=== PATIENT | male | born 1995 | race Caucasian/White ===

== ENCOUNTER 2017-12-22 07:39 | Emergency (ER) | payer BC, OTHER ==
[~2017-12-22] VITALS: Ht 175.3 cm; Wt 88.0 kg
[~2017-12-22 07:39] MED LIST: ACET1LIQ PO; ALBUAER2 INH; EPP3/2 IM; ETAN50IN2 IM
[2017-12-22 07:44] VITALS: TEMP 36.9; Ht 175.3 cm; Wt 88.0 kg
[2017-12-22] MEDS ORDERED: LXP10 PO (07:54)
[2017-12-22] MEDS ORDERED: ADAL40KI INJ (07:54)
[2017-12-22] MEDS ORDERED: ONDANSETRON INJ 2 MG/ML 2 ML VIAL IV STA (07:58)
[2017-12-22] MEDS ORDERED: FENTANYL CITRATE INJ 50 MCG/1 ML 2 ML VIAL IV ONE (08:00)
[2017-12-22] MEDS ORDERED: OPTIRAY 320 IV PRN (08:15)
--- NOTE | 2017-12-22 09:04 | DIAGNOSTIC IMAGING REPORT ---
CT OF THE CHEST WITH IV CONTRAST CLINICAL HISTORY: Right-sided rib pain. Trauma. COMPARISON STUDY: Chest radiograph February 25, 2015. TECHNIQUE: Following IV administration of 93 mL of Optiray-320, helical axial images of the chest were obtained. Sagittal and coronal reconstructions were viewed as well as maximal intensity projections on an independent 3-D workstation. A dose lowering technique was utilized adhering to the principles of ALARA. FINDINGS: There is no evidence of traumatic injury to the thoracic aorta. Size of the heart is at the upper limits of normal. There is no pericardial effusion. No enlarged thoracic lymph nodes are present. There is no pneumothorax or pulmonary contusion. Dependent airspace opacities reflect atelectasis. No acute rib fracture is identified. There is a mild compression fracture involving the superior plate of T7 with mild vertebral body height loss. There is no retropulsion or extension into the posterior elements. No additional thoracic spine fractures are identified. IMPRESSION: 1. Mild compression fracture involving the superior endplate of T7 with mild loss of vertebral body height and no retropulsion. This fracture is likely acute to subacute. 2. No additional traumatic findings within the chest. Electronically signed by: Harry Alcala M.D. 12/22/2017 9:03 AM Dictated Date/Time: 12/22/2017 8:49 AM
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
[2017-12-22] MEDS ORDERED: MoRPHine SULFATE 10 MG/ML CARP/VIAL IV STA (09:43)
[2017-12-22] MEDS ORDERED: OXYC1TAB3 PO (09:46)
[2017-12-22 10:28] VITALS: BP 118/60; PULSE 58; O2SAT 99
[2017-12-22 10:57] LABS: ISTAT CREATININE 0.9 mg/dl (0.6-1.3); ISTAT IONIZED CALCIUM 1.24 mmol/l (1.12-1.32); ISTAT POTASSIUM 4.2 mEq/L (3.3-5.0)
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
== END 2017-12-22 10:32 | disposition home or self-care (01) ==
LOC: C.EDB 07:41 → C.EDA 10:32
DX: S22.060A Wedge compression fracture of T7-T8 vertebra, initial encounter for closed fracture (principal); S20.219A Contusion of unspecified front wall of thorax, initial encounter; S30.1XXA Contusion of abdominal wall, initial encounter; V48.5XXA Car driver injured in noncollision transport accident in traffic accident, initial encounter; F17.200 Nicotine dependence, unspecified, uncomplicated

== ENCOUNTER 2018-02-06 07:31 | Emergency (ER) | payer OTHER ==
[~2018-02-06] VITALS: Ht 175.3 cm; Wt 87.8 kg
[~2018-02-06 07:31] MED LIST changes: -ACET1LIQ PO; +ADAL40KI INJ; -ALBUAER2 INH; -ETAN50IN2 IM; +LXP10 PO; +OXYC1TAB3 PO
[2018-02-06 07:35] VITALS: BP 125/81; PULSE 78; TEMP 36.5; O2SAT 98; Ht 175.3 cm; Wt 87.8 kg
[2018-02-06 08:15] LABS: BASO % 0.2 %; BASO ABS # 0.01 K/uL (0-0.2); EOS % 4.4 %; EOS ABS # 0.27 K/uL (0-0.5); HEMATOCRIT 38.8 % (42-52); HEMOGLOBIN 12.8 g/dL (14.0-18.0); IG# 0.01 K/uL (0.00-0.02); LYMPH % 33.4 %; LYMPH ABS # 2.03 K/uL (1.2-3.4); MEAN CELL VOLUME 76.2 fL (80-100); MEAN CORPUSCULAR HEMOGLOBIN 25.1 pg (25-34); MEAN PLATELET VOLUME 10.1 fL (7.4-10.4); MONO % 7.1 %; MONO ABS # 0.43 K/uL (0.11-0.59); NEUT % 54.7 %; NEUT ABS # 3.32 K/uL (1.4-6.5); PLATELET COUNT 194 K/uL (130-400); RED CELL DISTRIBUTION WIDTH CV 22.2 % (11.5-14.5); RED CELL DISTRIBUTION WIDTH SD 62.2 fL (36.4-46.3); WHITE BLOOD COUNT 6.07 K/uL (4.8-10.8)
[2018-02-06 08:24] LABS: PTT PATIENT 32.2 SECONDS (21.0-31.0)
[2018-02-06] MEDS ORDERED: CYCL10TA7 PO (08:25)
[2018-02-06] MEDS ORDERED: PROAIR INH (08:25)
[2018-02-06] MEDS ORDERED: LORA0.5T12 PO (08:25)
[2018-02-06 08:34] LABS: ALBUMIN 3.9 gm/dl (3.4-5.0); CALCIUM 8.9 mg/dl (8.5-10.1); CREATININE 0.88 mg/dl (0.60-1.40); POTASSIUM 4.1 mmol/L (3.5-5.1)
[2018-02-06 08:37] LABS: TOTAL PROTEIN 7.8 gm/dl (6.4-8.2)
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
== END 2018-02-06 09:18 | disposition home or self-care (01) ==
LOC: C.EDB 07:34
DX: R04.0 Epistaxis (principal); D68.0 Von Willebrand disease; J45.909 Unspecified asthma, uncomplicated; Z72.0 Tobacco use; Z88.2 Allergy status to sulfonamides

== ENCOUNTER 2020-08-25 06:30 | Observation (INO) ==
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
--- NOTE | 2020-08-24 16:23 | History & Physical Report ---
Date of Service August 24, 2020 Assessment & Plan (1) Superior glenoid labrum lesion of left shoulder, subsequent encounter: MRI with arthrogram confirms a superior labral tear. He may also have a small inferior labral tear, although I am skeptical of this on the imaging and it does not make a lot of sense with his mechanism of injury. We discussed this at length. I think that the best surgical treatment option for him would be shoulder arthroscopy with debridement of the superior labral tear and biceps tenodesis. I would evaluate the rest of the labrum and perform any additional repair as necessary. We extensively discussed conservative treatment with therapy and injections versus definitive surgical intervention, and he would much prefer the latter at this point. I think this is reasonable. Risks, benefits, and alternatives of surgery were explained in detail. The surgical procedure, as well as postoperative recovery and rehabilitation, was also explained in detail. Risks include bleeding; infection; damage to surrounding structures such as nerves, blood vessels, and tendons that run in the area; persistent pain, numbness, weakness, or stiffness; hardware failure or failure of the repair; or need for further surgery. The patient understands all of this and wishes to proceed with surgery. Preoperative workup was completed today, and informed consent was obtained. Of note, he has psoriasis and is on every other week Humira dosing. According to recommendations, we would schedule his surgery 2 weeks after his last Humira dose, have him skip 1 dose, and resume Humira 2 weeks after surgery. He was supposed to take his Humira yesterday. I would recommend that he go ahead and do this, and we will schedule his surgery at least 2 weeks from now. He also mentions today that he has von Willebrand's disease, and must get factor VIII infusion pre-and postoperatively, coordinated with his credit resolution representative. This will make the scheduling the surgery a little more difficult. We will get the actual surgery date nail down once we coordinate all these things. History of Present Illness Chief Complaint: Left shoulder pain Primary Care Provider: Joe Lang DO Mr. Vila returns today for his left shoulder. Again, he is a 25-year old [id number] male with a left shoulder injury that occurred 1 month ago. He fell forward in his chicken coop, and grasp the fence with his left arm as he was falling. He sustained a significant traction injury to his left arm. He felt a pop and sharp pain as he fell. Since that injury, he has had persistent pain and crepitus in the left shoulder. The pain seems to be in the superior aspect of his shoulder, especially with abduction and forward flexion motions. He denies any pain in his shoulder prior to this incident 1 month ago. He has not had any treatment for this yet. When I first saw him last week, I sent him for an MRI with arthrogram. He returns today for the results of this. Of note, he has psoriasis and is on Humira for this. He takes this every other week. Allergies Allergy/AdvReac Type Severity Reaction Status Date / Time bee venom protein (honey bee) Allergy Intermediate SWELLING Verified 08/23/20 07:51 Sulfa (Sulfonamide Allergy Intermediate Hives Verified 08/23/20 07:51 Antibiotics) Home Medications Home Medications Medication Instructions Recorded Confirmed Type adalimumab [Humira Pen] 40 mg SUBCUT UD 08/23/20 08/23/20 History albuterol sulfate 2 inh INHALATION Q6H PRN 08/23/20 08/23/20 History diphenhydramine HCl [Benadryl] 25 mg PO QAM 08/23/20 08/23/20 History epinephrine [Epi E-Z Pen] 0.3 mg IM Q3H PRN 08/23/20 08/23/20 History escitalopram oxalate 20 mg PO QAM 08/23/20 08/23/20 History lorazepam 0.5 mg PO BID PRN 08/23/20 08/23/20 History Past Med/Surg History Medical History Anxiety Asthma USED RESCUE INHALER OVER 1 YEAR AGO LAST Chronic back pain LUMBAR SPINE History of blood transfusion "MULTIPLE TIMES" Psoriasis Psoriatic arthritis Von Willebrand disease Surgical History H/O foot surgery RT/LEFT FOOT (CORRECTION FOR FLAT FOOT/HARDWARE INTACT) H/O shoulder surgery RT History of tooth extraction Nausea and vomiting after administration of anesthetic agent [place] teeth removed Family History Other No significant family history Social History Smoking Status: Current every day smoker Smoking End Date: 8 CIG DAILY; Second Hand Exposure: Yes; Do You Dip or Chew Tobacco: No; Tobacco Cessation Education Requested by Patient: No Hx Alcohol Use: Yes Alcohol type: beer Hx Substance Use: Yes Last Used Substance Other:: LAST USED THIS AM (ADVISED BY NURSING) Preferred Language: Guyanese Data Sme Required: No Beliefs That Will Affect Care: None Current Living Situation: Significant Other Feels Safe at Home: Yes Safety Concerns: Feels Safe At This Time Assistive Devices: None Physical Exam Physical Exam: General: The patient appears well developed and well nourished. Awake, alert, and oriented x 3. Appropriate mood and affect. Normal gait and station. Normal coordination and balance. Skin: The skin over the left shoulder shows no lesion or erythema. Inspection/Palpation: Visual inspection reveals no gross deformity of the shoulder. There is no palpable focal swelling. There is no significant focal tenderness to palpation along the biceps tendon sheath. Range of Motion: There is full symmetric range of motion of the shoulder. Stability: There is no gross ligamentous laxity. Strength: Rotator cuff strength is well maintained. Markedly positive Rogers's test. Negative Yergason's test. Sensation: The patient reports no numbness in the hand. Vascular: Hand is warm and well perfused. No diffuse edema. Results & Data ([facility]) Diagnostic Findings New left shoulder MRI with arthrogram was reviewed. It confirms a superior labral tear. It looks like there may also be a posterior inferior labral tear as well, but I am little skeptical of this. Rotator cuff looks intact. He has a type I-II acromion.
[~2020-08-25 06:30] MED LIST changes: -ADAL40KI INJ; +CEFAZOLIN 2000MG 2,000 MG/15 ML SYR IV SCH; -EPP3/2 IM; +LR 15ML/HR IV SCH; -LXP10 PO; -OXYC1TAB3 PO
[2020-08-25] MEDS ORDERED: BUPIVACAINE 0.5 % 5 MG/1 ML PF 10ML VIAL ONE (06:57)
[2020-08-25] MEDS ORDERED: [UNRECOGNIZED DRUG - MIXTURE] IV STA (07:05)
[2020-08-25 07:09] LABS: Partial Thromboplastin Ratio 1.3; Partial Thromboplastin Time 36.1 Seconds (21.0-31.0); Prothrombin Time 10.7 Seconds (9.0-12.0)
[2020-08-25] MEDS ORDERED: PROPOFOL IV EMULSION 10 MG/ML 20 ML VIAL IV ONE ×2 (07:31→11:07)
[2020-08-25] MEDS ORDERED: ROCURONIUM BROMIDE 10 MG/ML 5 ML VIAL IV ONE (07:31)
[2020-08-25] MEDS ORDERED: MIDAZOLAM HCL 1 MG/ML 2ML VIAL ONE (07:31)
[2020-08-25] MEDS ORDERED: ONDANSETRON INJ 2 MG/ML 2 ML VIAL ONE (07:31)
[2020-08-25] MEDS ORDERED: LIDOCAINE HCL 2% 2 ML VIAL/AMP(20MG/ML) INFIL ONE (07:31)
[2020-08-25] MEDS ORDERED: fentaNYL citrate 100 MCG/2 ML VIAL ONE (07:32)
[2020-08-25] MEDS ORDERED: ONDANSETRON INJ 2 MG/ML 2 ML VIAL IV PRN ×2 (08:13→15:51)
[2020-08-25] MEDS ORDERED: MEPERIDINE HCL 25 MG/ML CARP/VIAL IV PRN (08:13)
[2020-08-25] MEDS ORDERED: LABETALOL HCL IV 5 MG/ML 20ML IV PRN (08:13)
[2020-08-25] MEDS ORDERED: HYDROmorphone INJ 1 MG/ML SYRINGE IV PRN (08:13)
[2020-08-25] MEDS ORDERED: ATROPINE SULFATE 0.1 MG/ML 10ML SYR IV PRN (08:13)
[2020-08-25] MEDS ORDERED: PHENYLEPHRINE 100MCG/ML 5ML SYR IV PRN (08:13)
[2020-08-25] MEDS ORDERED: fentaNYL citrate 100 MCG/2 ML VIAL IV PRN (08:13)
[2020-08-25] MEDS ORDERED: ePHEDrine sulfate 50 MG/ML AMP IV PRN (08:13)
--- NOTE | 2020-08-25 08:16 | History & Physical Bridge Note ---
Date of Service August 25, 2020 History & Physical Bridge Note I have examined the patient, reviewed the History & Physical and in the interval since the performance of the History & Physical I have noted the following changes of clinical significance: no changes noted
[2020-08-25] MEDS ORDERED: SCOPOLAMINE 1.5 MG TDSY TD ONE ×3 (08:20→08:40)
[2020-08-25] MEDS ORDERED: EPINEPHrine HCL INJ 1 MG/ML 30ML ONE ×2 (08:37→08:39)
[2020-08-25] MEDS ORDERED: DEXAMETHASONE SOD INJ 4 MG/ML VIAL ONE (09:08)
[2020-08-25] MEDS ORDERED: GLYCOPYRROLATE 0.2 MG/ML VIAL ONE (11:06)
[2020-08-25] MEDS ORDERED: NEOSTIGMINE METHYLSULFATE 5 MG/5 ML SYR ONE (11:06)
--- NOTE | 2020-08-25 11:16 | Post Operative Brief Note ---
Immediate Post Op Note v1 Date of Surgery August 25, 2020 Pre & Post Diagnosis Operation Date: 08/25/20 08:15 Pre-Op Diagnosis: Left shoulder superior and posterior labral tears Post-Op Diagnosis: Left shoulder superior, posterior, and anterior-inferior labral tears I identified the patient and participated in the time-out.: Yes Procedure Operation Date: 08/25/20 08:15 Actual Procedures Left Shoulder Arthroscopy with Debridement of Superior Labral Tear, Bicep Tenodesis, Posterior and Anterior-Inferior Labral Repairs - Raymundo Cali M.D. Surgeon Raymundo Cali Quality Control Analyst Bo Ramirez PA-C Estimated Blood Loss 5 Findings Consistent with Post-Op Diagnosis
--- NOTE | 2020-08-25 11:18 | Operative Report ---
Post Operative Report Pre & Post Diagnosis Operation Date: 08/25/20 08:15 Pre-Op Diagnosis: Left shoulder superior and posterior labral tears Post-Op Diagnosis: Left shoulder superior, posterior, and anterior-inferior labral tears I identified the patient and participated in the time-out.: Yes Procedure Operation Date: 08/25/20 08:15 Actual Procedures Left shoulder arthroscopy with extensive debridement of degenerative superior labral tear and biceps tenotomy (35444) Arthroscopic biceps tenodesis (85946) Arthroscopic repair of posterior and anteriorinferior labral tears (79710) - Raymundo Cali M.D. Surgeon Raymundo Cali Director Loss Prevention Bo Ramirez PA-C Estimated Blood Loss 5 Findings Consistent with Post-Op Diagnosis Specimens None Drains None Anesthesia Type General Regional Complications none Disposition Disposition: Recovery Room Indications Mr. Vila is a 25-year-old male who injured his left shoulder when he fell and grabbed a fence as he was falling and had a traction injury to his left shoulder about a month ago. History, clinical exam, and imaging were consistent with the above diagnosis. Risks, benefits, and alternatives of surgery were explained in detail. The patient understood all this and wished to proceed. Description of Procedure Patient was identified in the preoperative holding area. Operative extremity was marked. Regional blockade was given by the Anesthesia Staff. Patient was then brought back to the operating room, and general anesthesia was induced without complication. Appropriate weight-based dose of Ancef was infused intravenously for antibiotic prophylaxis. Patient was then placed up in the beach chair position. Left arm was then prepped and draped in a standard sterile fashion using Chlorhexidine prep. Posterior viewing portal was created with a #11 blade. Arthroscopic camera was introduced into the shoulder joint. Anterior working portal was then created with a #11 blade after localizing with a spinal needle. Diagnostic arthroscopy was then performed. Superior labrum showed fraying along the free edge. When probed, the superior labrum grossly from the superior glenoid, consistent with a type II SLAP tear. There was some focal grade III chondromalacia in the area of this labral tear as well. The labral tearing extended through the zone of the sub-labral foramen, and there appeared to be some separation of the labrum in the anterior inferior aspect of the shoulder around the 4:30 position. There is also obvious tearing of the posterior labrum, but this was better visualized after switching the arthroscopic camera to the anterior portal. Articular cartilage in the majority of the glenoid and humeral head was intact without significant chondromalacia, other than in the area of the superior and posterior labral tears. There were no loose bodies in the axillary pouch. I then inspected the rotator cuff tendon. No full- thickness rotator cuff tears requiring repair were visualized. Posterior humeral head was visualized, and no significant Hill-Sachs deformity was seen. I then inspected the biceps tendon as it exited out of the shoulder. There was significant synovitis and tendonitis of the biceps tendon in this area. I therefore decided to proceed with the biceps tenotomy and tenodesis. I tagged the biceps tendon with a 0 PDS suture. I then amputated the biceps tendon off of the superior labrum. Degenerative superior labral tear was then debrided with an arthroscopic shaver. I then removed the camera from the intraarticular space and placed it in the subacromial space. Lateral working portal was created, and a subacromial bursectomy was then performed with shaver and radiofrequency probe. I defined the anterior and lateral borders of the acromion; there was no significant anterior downsloping of the acromion, and therefore a subacromial decompression was not required. At this point I proceeded with the biceps tenodesis. I continued with the bursectomy anteriorly to the area overlying the bicipital groove. Bicipital groove was palpated, and the biceps tendon was unroofed with the radiofrequency probe. There was significant synovitis and tendonitis of the biceps tendon in this area. I then subluxated the biceps tendon out of the bicipital groove and placed a guide wire in the center of the bicipital groove. I then used an 8 mm reamer over the guidewire to create the biceps tenodesis hole. I then tensioned the biceps tendon appropriately, placed the tendon down into the depth of the tenodesis hole, and held it there with a guidewire. I then secured the tendon with an 7 x 25 mm Biosure tenodesis screw over the guidewire to complete the biceps tenodesis. I then amputated the proximal portion of the tendon proximal to the tenodesis screw. I then proceeded with the fixation of the posterior labral tear. Arthroscopic camera was placed in the anterior portal, and the posterior labrum visualized. There is separation of the posterior labrum away from the posterior glenoid, with extension of this posterior labral tear down into the posteriorinferior portion of the labrum. There was again a small focal area of grade III chondromalacia directly in the area of this labral tear. Posteriorlateral portal for percutaneous placement of the labral anchors was created with #11 blade after localizing with a spinal needle. Arthroscopic rasp/liberator was introduced into the shoulder joint and the posterior aspect of the glenoid was roughened to incite healing response. A curved [employer] Nephew 1.8 mm Q-Fix anchor was then selected for labral repair. I positioned the curved drill guide at about the 8:30 position on the posterior glenoid at the superior extent of the labral tear. Drill hole was made, and then the anchor was inserted into this drill hole and deployed. One limb of the suture was then passed around the labrum using a suture passer, and then tied down. This process was repeated with 1 more Q-Fix anchor down to about the 10:00 position to complete the repair of the posterior and posteriorinferior labrum. I then switched the camera back into the posterior portal and proceeded with anteriorinferior labral repair. A small anterior-inferior portal was created with #11 blade after localizing with a spinal needle for percutaneous placement of the anchor. Arthroscopic rasp/liberator was introduced into the shoulder joint and the anterior-inferior aspect of the glenoid was roughened to incite healing response. A curved Elder [employer] Nephew 1.8 mm Q-Fix anchor was again selected for labral repair. I positioned the curved drill guide at about the 5:00 position on the anterior-inferior glenoid at the inferior extent of the labral tear. Drill hole was made, and then the anchor was inserted into this drill hole and deployed. One limb of the suture was then passed around the labrum using a suture passer, and then tied down. All arthroscopic equipment was removed and excess fluid was drained. Arthroscopic portals were then closed with 4-0 Prolene. Sterile dressings were then applied with Xeroform, sterile gauze, and sterile ABD pads, and foam tape. The arm was placed in a sling. Drapes were removed, the patient was awakened from general anesthesia, transferred over to the stretcher, and taken to the Post Anesthesia Care Unit in stable condition. There were no immediate complications from the procedure. I was present and scrubbed for the entire procedure. Due to the complex nature of the procedure, the entire surgery was performed with the operational assistance of Bo Ramirez PA-C. The music library assistant, under direct supervision, was involved in the performance of all aspects of the surgical procedure including patient positioning, tissue retraction, hemostasis, wound closure, and dressing application. I attest to the content of the Intraoperative Record and any orders documented therein. Any exceptions are noted below.
--- NOTE | 2020-08-25 12:01 | Anesthesiology Progress Note ---
Date of Service August 25, 2020 Anesthesia Post Procedure Vital Signs Vital Signs: Temp Pulse Pulse Resp BP Pulse Ox 08/25/20 11:50 81 24 119/72 95 08/25/20 11:40 97 H 18 113/71 99 08/25/20 11:33 36.6 C 104 H 18 110/66 98 08/25/20 08:17 59 L 18 136/80 99 08/25/20 06:49 37.2 C 74 18 128/84 96 Pain Intensity Left Shoulder: Pain Intensity: 4 Transfer of Care Handoff Completed per policy Notes Mental Status: alert / awake / arousable Patient Amnestic to Procedure: Yes Nausea / Vomiting: adequately controlled Pain: adequately controlled Airway Patency, RR, SpO2: stable & adequate BP & HR: stable & adequate Hydration State: stable & adequate Anesthetic Complications: no major complications apparent and Pt Satisfied with anesthetic care
[2020-08-25] MEDS ORDERED: LORazepam 0.5 MG TAB PO STA (15:05)
[2020-08-25] MEDS ORDERED: FACTOR 8/HUMATE-P/ADVATE ONE (15:15)
[2020-08-25] MEDS ORDERED: ACETAMINOPHEN 325 MG TAB ONE (15:24)
[2020-08-25] MEDS ORDERED: ACETAMINOPHEN 325 MG TAB PO STA (15:27)
[2020-08-25] MEDS ORDERED: LORazepam 0.5 MG TAB PO PRN (15:51)
[2020-08-25] MEDS ORDERED: ACETAMINOPHEN 325 MG TAB PO PRN (15:51)
[2020-08-25] MEDS ORDERED: ALBUTEROL HFA 8 GM INHALER INH PRN (15:51)
[2020-08-25] MEDS ORDERED: CHECK SCOPOLAMINE PATCH PLACEMENT SCH (16:00)
--- NOTE | 2020-08-25 17:07 | History & Physical Report ---
Date of Service August 25, 2020 Assessment & Plan (1) Superior glenoid labrum lesion of left shoulder, subsequent encounter: s/p left shoulder arthroscopy with Dr. Cali plan to discharge tomorrow morning (2) Von Willebrand's disease: plan for Humate - P this evening and tomorrow morning Dr. Flores will see tomorrow morning likely home in the morning after check labs and give Humate - P Admission and Anticipated Discharge Date Admission Date: August 25, 2020 History of Present Illness Chief Complaint: I had shoulder surgery Primary Care Provider: Joe Lang, 25 yo male with history of von Willebrand's disease, psoriasis and arthritis is going for observation after having shoulder arthroscopy today. He needs to stay for Humate-P infusion tonight and tomorrow morning. He c/o anxiety and a headache, he is requesting Ativan and Tylenol, he does not want to stay. Discussed with Dr. Flores, he needs to stay, get his factor 8 and he can go home tomorrow morning. Patient agreed to stay. Allergies Allergy/AdvReac Type Severity Reaction Status Date / Time bee venom protein (honey bee) Allergy Intermediate SWELLING Verified 08/25/20 0 6:54 Sulfa (Sulfonamide Allergy Intermediate Hives Verified 08/25/20 06:54 Antibiotics) Home Medications Home Medications Medication Instructions Recorded Confirmed Type Humira Pen 40 mg SUBCUT UD 08/23/20 08/25/20 History albuterol sulfate 2 inh INHALATION Q6H PRN 08/23/20 08/25/20 History diphenhydramine HCl [Benadryl] 25 mg PO QAM 08/23/20 08/25/20 History epinephrine 0.3 mg IM Q3H PRN 08/23/20 08/25/20 History escitalopram oxalate 20 mg PO QAM 08/23/20 08/25/20 History lorazepam 0.5 mg PO BID PRN 08/23/20 08/25/20 History Past Med/Surg History Medical History Anxiety Asthma USED RESCUE INHALER OVER 1 YEAR AGO LAST Chronic back pain LUMBAR SPINE History of blood transfusion "MULTIPLE TIMES" Psoriasis Psoriatic arthritis Von Willebrand disease Surgical History H/O foot surgery RT/LEFT FOOT (CORRECTION FOR FLAT FOOT/HARDWARE INTACT) H/O shoulder surgery RT History of tooth extraction Nausea and vomiting after administration of anesthetic agent [place] teeth removed Family History Other No significant family history Social History Smoking Status: Current every day smoker Smoking End Date: 8 CIG DAILY; Second Hand Exposure: Yes; Do You Dip or Chew Tobacco: No; Tobacco Cessation Education Requested by Patient: No Hx Alcohol Use: Yes Alcohol type: beer Hx Substance Use: Yes Last Used Substance Other:: LAST USED THIS AM (ADVISED BY NURSING) Preferred Language: Azeri Radio Message Router Required: No Beliefs That Will Affect Care: None Current Living Situation: Significant Other Feels Safe at Home: Yes Safety Concerns: Feels Safe At This Time Assistive Devices: None Review of Systems Review of Systems: All systems reviewed & are unremarkable except as noted in Subjective Musculoskeletal: + joint pain (shoulder, mild) Neurologic: + headache(s) Psychiatric: + anxiety Physical Exam Constitutional: well developed and well nourished; no acute distress Eyes: PERRL, conjunctivae normal, anicteric sclerae ENMT: external ear and nose normal, oropharynx normal Neck: trachea midline, no thyromegaly Respiratory: normal respiratory effort, lungs clear to auscultation Cardiovascular: RRR, no murmur, no edema Gastrointestinal (Abdomen): normal bowel sounds, soft, nontender, no hepatosplenomegaly Musculoskeletal: no cyanosis or clubbing, extremities motor strength 5/5 Extremities: + extremities abnormal to inspection (left arm in immobilizer sling) Skin: no rashes, warm and dry Neurologic: patellar DTR's 2+ bilat, sensation intact and PERRL, EOMI, accommodation nl, no face palsy, no dysarthria Psychiatric: A+Ox3, euthymic affect Lymphatic: no cervical or axillary lymphadenopathy Results & Data Results & Data ([facility]) Vital Signs (Past 12 Hours) Vital Signs Temp Pulse Pulse Resp BP Pulse Ox 08/25/20 15:50 36.8 C 72 16 129/67 95 08/25/20 14:16 36.6 C 78 18 125/85 98 08/25/20 12:46 36.6 C 80 18 128/83 98 08/25/20 12:16 36.6 C 85 18 130/69 95 08/25/20 12:10 36.5 C 82 22 124/73 96 08/25/20 12:00 89 17 121/75 95 08/25/20 11:50 81 24 119/72 95 08/25/20 11:40 97 H 18 113/71 99 08/25/20 11:33 36.6 C 104 H 18 110/66 98 08/25/20 08:17 59 L 18 136/80 99 08/25/20 06:49 37.2 C 74 18 128/84 96 Laboratory Results Laboratory Results - last 24 hr 08/25/20 08/25/20 06:44 06:44 PT 10.7 INR 1.0 APTT 36.1 H PTT Ratio 1.3 Factor VIII Activity Pending Medications Administered Current Inpatient Medications Acetaminophen (Acetaminophen 325 Mg Tab) 650 mg PO Q4H PRN PRN Reason: pain/fever Stop: 09/24/20 15:50 Albuterol (Albuterol Hfa 8 Gm Inhaler) 2 puffs INH Q6H PRN PRN Reason: SHORT OF BREATH Stop: 09/24/20 15:50 Diphenhydramine HCl (Diphenhydramine Hcl 25 Mg Cap) 25 mg PO QAM ESTELA Stop: 09/25/20 08:59 Escitalopram Oxalate (Escitalopram Oxalate 20 Mg Tab) 20 mg PO QAM ESTELA Stop: 09/25/20 08:59 Lorazepam (Lorazepam 0.5 Mg Tab) 0.5 mg PO BID PRN PRN Reason: Anxiety Stop: 09/24/20 15:50 Ondansetron HCl (Ondansetron Inj 2 Mg/Ml 2 Ml Vial) 4 mg IV Q6H PRN PRN Reason: Nausea Stop: 09/24/20 15:50 Last Admin: 08/25/20 18:03 Dose: 4 mg Documented by: Code Status & VTE Plan VTE Prophylaxis Plan VTE Prophylaxis will be ordered: No PG Care Time/CCT Total # of Minutes Spent Total Time Spent with Patient: Total time spent is greater than 50% in coordination of care (as documented) at patient's floor/unit and/or counseling patient: Coding Level of Care Code 80165 OBS Care - Level 2 Diagnoses Superior glenoid labrum lesion of left shoulder, subsequent encounter S43.432D Von Willebrand's disease D68.0
[2020-08-25] MEDS ORDERED: [UNRECOGNIZED DRUG - MIXTURE] IV ONE (20:00)
[2020-08-26] MEDS ORDERED: MoRPHine SULFATE 4 MG/ML 1 ML CARP\\VIAL IV STA (04:11)
[2020-08-26 06:05] LABS: Hematocrit (blood only) 40.4 % (42-52); Hemoglobin 13.5 g/dL (14.0-18.0); Mean Corpuscular Hemoglobin 29.8 pg (25-34); Mean Corpuscular Hgb Conc 33.4 g/dL (32-36); Mean Corpuscular Volume 89.2 fL (80-100); Platelet Count 207 K/uL (130-400); RDW Coefficient of Variation 13.7 % (11.5-14.5); RDW Standard Deviation 45.1 fL (36.4-46.3); Red Blood Count 4.53 M/uL (4.7-6.1); White Blood Count 12.97 K/uL (4.8-10.8)
[2020-08-26 06:24] LABS: Partial Thromboplastin Ratio 1.1; Partial Thromboplastin Time 30.2 Seconds (21.0-31.0); Prothrombin Time 10.9 Seconds (9.0-12.0)
[2020-08-26 07:29] VITALS: BP 118/75; PULSE 52; TEMP 99; O2SAT 97
[2020-08-26] MEDS ORDERED: OXYCODONE HCL IR 5 MG TAB (IMMEDIATE RELEASE) PO ONE (07:30)
[2020-08-26] MEDS ORDERED: FACTOR 8/HUMATE-P/ADVATE ONE (08:00)
[2020-08-26] MEDS ORDERED: [UNRECOGNIZED DRUG - MIXTURE] IV SCH (08:00)
--- NOTE | 2020-08-26 08:58 | Anesthesiology Progress Note ---
Date of Service August 26, 2020 Anesthesia Post Procedure Vital Signs Vital Signs: Temp Pulse Pulse Resp BP Pulse Ox 08/26/20 07:26 37.2 C 52 L 14 118/75 97 08/26/20 03:47 37.1 C 71 20 115/71 96 08/25/20 23:38 37.1 C 55 L 20 114/67 96 08/25/20 19:47 37.1 C 63 18 112/69 95 08/25/20 17:40 36.7 C 78 16 117/76 96 08/25/20 16:50 36.8 C 97 H 17 115/74 95 08/25/20 15:50 36.8 C 72 16 129/67 95 08/25/20 14:16 36.6 C 78 18 125/85 98 08/25/20 12:46 36.6 C 80 18 128/83 98 08/25/20 12:16 36.6 C 85 18 130/69 95 08/25/20 12:10 36.5 C 82 22 124/73 96 08/25/20 12:00 89 17 121/75 95 08/25/20 11:50 81 24 119/72 95 08/25/20 11:40 97 H 18 113/71 99 08/25/20 11:33 36.6 C 104 H 18 110/66 98 Notes Mental Status: alert / awake / arousable Patient Amnestic to Procedure: Yes Nausea / Vomiting: adequately controlled Pain: adequately controlled Airway Patency, RR, SpO2: stable & adequate BP & HR: stable & adequate Hydration State: stable & adequate Anesthetic Complications: no major complications apparent and Pt Satisfied with anesthetic care
[2020-08-26] MEDS ORDERED: ESCITALOPRAM OXALATE 20 MG TAB PO SCH (09:00)
--- NOTE | 2020-08-26 12:35 | Consultation Report ---
DATE OF CONSULTATION: 08/26/2020 HEMATOLOGY CONSULTATION REASON FOR CONSULTATION: Status post arthroscopic left shoulder surgery in a pleasant 25-year-old gentleman with von Willebrand's disease, type 2B. HISTORY OF PRESENT ILLNESS: Andrew is a pleasant 25-year-old gentleman well known to [facility], currently under my care with the diagnosis of type 2B von Willebrand's disease. The patient was admitted to the hospitalist service at my request to monitor hemostasis in the setting of arthroscopic left shoulder surgery. As instructed, this gentleman came in yesterday for elective surgery. He was administered Humate-P 30 units per kilogram one hour prior to procedure. The patient did well and is recovering on the 3rd floor at present. He received an additional dose of Humate-P last night 20 units per kilogram intravenously. He is due to receive his third and final dose this morning at 8:00 a.m. I visited Andrew at bedside. Other than expected postoperative pain, there was no evidence of external bleeding. His hemoglobin is 13 plus grams per deciliter. The patient is requesting to go home as soon as he receives Humate-P. PAST MEDICAL HISTORY: Again significant for anxiety, asthma, type 2B von Willebrand's disease, history of blood transfusions, psoriasis and psoriatic arthritis. PAST SURGICAL HISTORY: Includes wisdom teeth removal, history of right shoulder surgery, history of left foot surgery. MEDICATIONS: Prior to admission include lorazepam 0.5 mg p.o. b.i.d. p.r.n., escitalopram 20 mg p.o. daily, Benadryl 25 mg p.o. daily, albuterol sulfate 2 inhalations q.4 hours p.r.n., Humira pen 40 mg subQ as directed. ALLERGIES: BEE VENOM AND SULFA DRUGS. SOCIAL HISTORY: The patient is an 8-cigarette per day smoker. He also drinks beer in social occasions. He is single but lives with his significant other. FAMILY HISTORY: His mother also suffers from von Willebrand's disease. REVIEW OF SYSTEMS: All systems are negative, status post arthroscopic left shoulder surgery. PHYSICAL EXAMINATION: GENERAL: A very pleasant 25-year-old, awake, alert and appropriate, in no acute distress. VITAL SIGNS: Temperature 37.2, pulse 52, respiratory rate 14, blood pressure 118/75. SKIN: Without rash or lesion. Turgor is good. HEENT: Atraumatic, normocephalic. Eyes: PERRLA. Nares patent without rhinorrhea or discharge. Throat is clear. Tongue midline. NECK: Supple. HEART: Regular rate and rhythm. LUNGS: Clear to auscultation. ABDOMEN: Soft, nontender, nondistended. EXTREMITIES: Left upper extremity in immobilizer. Otherwise, no clubbing, cyanosis or edema of the lower extremities. NEUROLOGICAL: Grossly intact. LABORATORY DATA: WBC count 12,970, hemoglobin 13.5, platelet count 207,000. PT 10.9 seconds, PTT 30.2 seconds. IMPRESSION: 1. Postoperative day #1 arthroscopic left shoulder surgery to repair a torn rotator cuff. 2. Von Willebrand's disease, type 2. 3. Anxiety/depression. PLAN: Andrew is a very pleasant 25-year-old gentleman well known to [facility], currently under my care with a type 2B von Willebrand's disease. I saw Andrew in the office on 08/16/2020 in preparation for his upcoming surgery. As prescribed, he received Humate-P 1 hour before and within 8 hours postoperatively. He will receive yet a third dose this morning. He is now 24 hours beyond surgery and I think the risk of bleeding is quite low and feel very comfortable sending him home after his a.m. Humate-P. I have asked the hospitalist to order CBC for Saturday. I cautioned Andrew to be alert for acute swelling around the operative site and warmth to palpation, which may indicate hematoma formation. I am men's custom hair piece consultant over the weekend and advised him to certainly call me or proceed directly to the Emergency Room should any problems arise. Outpatient followup has been established. Thank you very much for allowing me to participate in his care. If you have any questions or concerns, feel free to contact me at any time.
--- NOTE | 2020-08-29 21:51 | Discharge Summary ---
Date of Service August 26, 2020 Admission HPI Per Admitting Provider 25 yo male with history of von Willebrand's disease, psoriasis and arthritis is going for observation after having shoulder arthroscopy today. He needs to stay for Humate-P infusion tonight and tomorrow morning. He c/o anxiety and a headache, he is requesting Ativan and Tylenol, he does not want to stay. Discussed with Dr. Flores, he needs to stay, get his factor 8 and he can go home tomorrow morning. Patient agreed to stay. Principal Diagnosis von Willebrand's disease Discharge Exam Constitutional well developed and well nourished; no acute distress Eyes PERRL, conjunctivae normal, anicteric sclerae ENMT external ear and nose normal, oropharynx normal Neck trachea midline, no thyromegaly Respiratory normal respiratory effort, lungs clear to auscultation Cardiovascular RRR, no murmur, no edema Gastrointestinal (Abdomen) normal bowel sounds, soft, nontender, no hepatosplenomegaly Musculoskeletal no cyanosis or clubbing, extremities motor strength 5/5 Extremities: + extremities abnormal to inspection (left arm in immobilizer sling) Skin no rashes, warm and dry Neurologic patellar DTR's 2+ bilat, sensation intact and PERRL, EOMI, accommodation nl, no face palsy, no dysarthria Psychiatric A+Ox3, euthymic affect Lymphatic no cervical or axillary lymphadenopathy Discharge Data Allergies Allergy/AdvReac Type Severity Reaction Status Date / Time bee venom protein (honey bee) Allergy Intermediate SWELLING Verified 08/25/20 06:54 Sulfa (Sulfonamide Allergy Intermediate Hives Verified 08/25/20 06:54 Antibiotics) Consultations 08/25/20 15:51 Consult Hematology Routine Procedures Performed Operation Date: 08/25/20 08:15 Actual Procedures p Left Shoulder Arthroscopy Debridement of Superior Labral Tear, Bicep Tenodesis, Posterior Labral Repair, Anterior/Interior Labral Repair(Left) - Raymundo Cali M.D. Ordered Studies 08/25/20 05:00 US - OR guided needle placemen Routine Hospital Course (1) Superior glenoid labrum lesion of left shoulder, subsequent encounter: s/p left shoulder arthroscopy with Dr. Cali discharge to home post op instructions for bandaging, activity level provided by orthopedics (2) Von Willebrand's disease: treated with Humate - P the morning prior to surgery, then in the evening and now this morning no signs of bleeding Dr. Flores consulted, appreciate recommendations will check a CBC on 08/29, he can follow up with Dr. Flores Total Time Total Time Spent Total Time Spent (In Minutes): 20 Total Time Includes: Examination of the Patient, Discharge Planning, Medication Reconciliation and Communication With Other Providers Discharge Plan Discharge Items Patient Disposition: Home - Self-Care Reason For Visit: Left Shoulder, Superior Labral Tear, Possible Post Discharge Diagnosis: Left shoulder superior, posterior, and anterior-inferior labral tears Condition on Discharge: Good Goals: get a CBC on Wednesday 08/29 Activity: Per Instructions section Non-emergency contact: Primary Care Provider and Surgeon Call non-emergency contact if: your pain is not controlled, your temperature is above 101.5, your wound has increased redness and your wound has increased drainage Follow-up/Referrals: Joe Lang, [Primary Care Provider] - Raymundo Cali M.D. [Physician] - Diet: Regular Addtl Attending Provider Instructions: Things to Watch Out For -Nausea and sometimes vomiting is common side effect of anesthesia. Go easy with eating for the first day after your surgery. Drink non-carbonated fluids like Gatorade or water. Eat bland foods such as crackers. If these things go down easily, you may progress to more normal foods. -Go to the Emergency Room if you have sudden onset of chest pain, shortness of breath, or uncontrollable pain. -Call the clinic immediately if you have a sudden increase in the amount of wound drainage or the drainage becomes thick, yellow or green, or foul-smelling. -For routine questions, call the clinic at [phone] during regular business hours (8am-5pm). For urgent issues after regular business hours, you may call the clinic to be connected to the on-call physician. Dressings -Keep your dressings clean, dry, and in place for 4 days. After 4 days, you may remove the dressing and cover the incisions with Band-Aids. Be sure to wash your hands thoroughly before touching your incisions. Apply new Band-Aids daily thereafter. -You may begin showering after your first dressing change (4 days after surgery). You may let the water run BRIEFLY over the incisions, but do not soak the incisions in the bathtub or pool for 2 weeks. You may also gently clean the incisions with mild soap and water; pat the incisions dry after cleaning-do not rub the incisions. -You may use an antibiotic ointment (Bacitracin, Polysporin) if desired, but this is not necessary. Shoulder Exercises -Keep your operative shoulder in the sling/abduction pillow at all times, except as detailed below. -You should come out of the sling 4-5 times a day for passive pendulum exercises: lean over and swing your arm in a circular pattern. You may also do active-assisted forward flexion exercises: use your opposite hand to lift your operative arm forward to 90 degrees. -Do not forcefully flex your elbow (curl motion) or supinate your forearm (rotating palm up) against resistance. Do not lift any objects with your operative arm. -Avoid the "apprehension position", with the shoulder abducted above shoulder level and externally rotated (in a "touchdown" motion). Pain Medicines -You have been prescribed an anti-inflammatory (Motrin/ibuprofen) and a non- narcotic pain medicine (Tylenol/acetaminophen). These are your primary pain medications. Take them each every 6 hours as instructed. It is recommended that you stagger these medicines every 3 hours (i.e. take ibuprofen at 8:00 am, then acetaminophen at 11:00 am, then ibuprofen at 2:00 pm, etc) -DO NOT take any additional anti-inflammatories (Advil, Aleve/naproxen, Mobic/meloxicam, Celebrex) or any additional Tylenol/acetaminophen products with these prescribed medications. -You have also been prescribed an additional narcotic pain medication (oxycodone/tramadol). Take this medicine ONLY for breakthrough pain not controlled by the ibuprofen and acetaminophen. -Do not drive or operate heavy machinery while taking the narcotic medication. -Common side effects of narcotic pain medicines include itching, nausea, constipation, and feeling ``loopy. However, if you develop a rash or hives, stop taking the medicine and call the clinic. If you develop swelling in your throat or difficulty breathing, go to the Emergency Room or call 911 IMMEDIATELY. -You may take over the counter stool softeners if needed for constipation. Regional Nerve Blocks -If you were given a regional nerve block for your surgery, take a dose of pain medicine BEFORE the block wears off (either before you go to bed or when you FIRST start feeling sensation return). Do not wait; the block will wear off fairly abruptly and cause a significant increase in your pain level. -Nerve blocks usually wear off after about 12 hours, but they can last as long as 72 hours. Ice Cooling Sleeve -You may use an ice pack or cooling sleeve to reduce pain and inflammation. You should use it 20-30 minutes at a time for the first 1-[address] a towel between the sleeve and your skin to prevent frostbite. -About 2 weeks after your surgery, you should start using heat to loosen up your shoulder prior to doing your stretching exercises, then use the cooling sleeve after your exercises are complete to reduce swelling and pain. Pending Studies at Discharge: No Stand-Alone Forms: My [facility] Medications and DC Order Prescriptions: Continued lorazepam 0.5 mg Tablet 0.5 mg PO BID PRN (Reason: Anxiety) RF: 0 diphenhydramine HCl [Benadryl] 25 mg Capsule 25 mg PO QAM RF: 0 escitalopram oxalate 20 mg Tablet 20 mg PO QAM RF: 0 Humira Pen 40 mg/0.8 mL Pen Injector Kit 40 mg SUBCUT UD RF: 0 albuterol sulfate 90 mcg/actuation Aerosol Powdr Breath Activated 2 inh INHALATION Q6H PRN (Reason: SHORT OF BREATH) RF: 0 epinephrine 0.3 mg/0.3 mL Auto-Injector 0.3 mg IM Q3H PRN (Reason: BEE STINGS) RF: 0 Discharge Orders: Discharge Order (Routine); Ordered 08/26/20 Ordered By: Shailesh Gaytan Admission Data Admit Date/Time: 08/25/20 15:51 Attending Provider: Shailesh Gaytan Admit Provider: Shailesh Gaytan Primary Care Provider: Joe Lang Other Providers: Nigel Flores V. Other Interventions: Discharge Summary Assessment (RN) Last Done: 08/26/20 09:30 Coding Level of Care Code 02789 OBS Care - Discharge Diagnoses Superior glenoid labrum lesion of left shoulder, subsequent encounter S43.432D Von Willebrand's disease D68.0
== END 2020-08-26 09:51 | disposition home or self-care (01) ==
LOC: 3E 06:30 → ASU 06:30